=== PATIENT | female | born 1965 | race Caucasian/White ===

== ENCOUNTER → 2016-12-13 | Outpatient (CLI) | payer BC ==
[~2016-12-13] MED LIST: GLUCOSAMINE & C1 CA2 PO; NO HOME MEDICATIONS; SYNTHROID0.05 MG/TA PO; VITAMIND3 5000 PO
== END ==
LOC: MC.RAD 13:45
DX: Z12.31 Encounter for screening mammogram for malignant neoplasm of breast (principal)

== ENCOUNTER → 2016-12-22 | Outpatient (CLI) | payer BC ==
[~2016-12-22] VITALS: Ht 162.6 cm; Wt 76.9 kg
[2016-12-22 09:13] VITALS: BP 118/70; PULSE 77
== END ==
LOC: LIGHT 09:00
DX: M54.5 Low back pain (principal); E66.3 Overweight; Z68.29 Body mass index [BMI] 29.0-29.9, adult; N39.3 Stress incontinence (female) (male)

== ENCOUNTER → 2017-01-03 | Outpatient (CLI) | payer BC ==
[~2017-01-03] VITALS: Ht 162.6 cm; Wt 76.4 kg
[2017-01-03 14:28] VITALS: BP 124/77; PULSE 71
== END ==
LOC: LIGHT 14:55
DX: Z02.89 Encounter for other administrative examinations (principal)

== ENCOUNTER → 2017-01-13 | Outpatient (CLI) | payer BC ==
[~2017-01-13] VITALS: Ht 162.6 cm; Wt 76.0 kg
[2017-01-13 15:15] VITALS: BP 134/84; PULSE 68
[2017-01-26 11:46] VITALS: BP 136/87; PULSE 69
== END ==
LOC: LIGHT 14:01
DX: M54.5 Low back pain (principal); E66.3 Overweight; Z68.28 Body mass index [BMI] 28.0-28.9, adult; Z71.3 Dietary counseling and surveillance; N39.3 Stress incontinence (female) (male)

== ENCOUNTER → 2017-02-09 | Outpatient (CLI) | payer BC | LOC: LIGHT 13:57 | DX: Z01.818 Encounter for other preprocedural examination (principal) ==

== ENCOUNTER → 2017-02-24 | Outpatient (CLI) | payer BC ==
[~2017-02-24] VITALS: Ht 162.6 cm; Wt 75.3 kg
[2017-02-24 11:51] VITALS: BP 108/70; PULSE 68
[2017-04-11 14:53] VITALS: BP_SYST 162.56; PULSE 20150304
== END ==
LOC: LIGHT 10:26
DX: M54.5 Low back pain (principal); E66.3 Overweight; Z68.28 Body mass index [BMI] 28.0-28.9, adult; Z71.3 Dietary counseling and surveillance; N39.3 Stress incontinence (female) (male)

== ENCOUNTER → 2017-05-05 | Outpatient (CLI) | payer BC ==
[~2017-05-05] VITALS: Ht 162.6 cm; Wt 75.3 kg
[2017-05-05 15:44] VITALS: BP 124/70; PULSE 68
== END ==
LOC: LIGHT 04-07 10:31
DX: M54.5 Low back pain (principal); E66.3 Overweight; Z68.28 Body mass index [BMI] 28.0-28.9, adult; Z71.3 Dietary counseling and surveillance; N39.3 Stress incontinence (female) (male)

== ENCOUNTER → 2019-05-09 | Outpatient (CLI) | payer BC | LOC: MC.RAD 11:33 | DX: Z12.31 Encounter for screening mammogram for malignant neoplasm of breast (principal); N63.20 Unspecified lump in the left breast, unspecified quadrant ==

== ENCOUNTER → 2019-05-18 | Outpatient (CLI) | payer BC | LOC: MC.RAD 09:29 | DX: N63.20 Unspecified lump in the left breast, unspecified quadrant (principal) ==

== ENCOUNTER → 2020-09-02 | Outpatient (CLI) | payer OTHER | LOC: MC.RAD 10:53 | DX: Z12.31 Encounter for screening mammogram for malignant neoplasm of breast (principal); R59.0 Localized enlarged lymph nodes ==

== ENCOUNTER → 2023-09-01 | Outpatient (CLI) | payer BC | LOC: CANSCHCLI → MC.RAD 07-01 10:15 | DX: Z12.31 Encounter for screening mammogram for malignant neoplasm of breast (principal) ==